=== PATIENT | male | born 1940 | race Caucasian/White ===

== ENCOUNTER 2019-04-20 12:22 | Outpatient (CLI) | payer MEDICARE, SELFPAY ==
--- NOTE | ~2019-04-20 | XR_ITS ---
EXAMINATION: XR lg joint inject/asp w image DATE: 04/20/2019 13:22 INDICATION: Right hip pain. TECHNIQUE: A time-out was performed to verify the patient's name, date of , and procedure to b e performed. The procedure including the risks, benefits, and alternatives was discussed with the pat ient. Risks discussed included bleeding and infection. The patient understood the risks and agreed to proceed. The skin overlying the right hip joint was prepped and draped in usual sterile fashion. A nesthetic was administered with 1% lidocaine subcutaneously. A 22 G needle was advanced under fluoro scopic guidance into the joint. Injection of 1 mL of Omnipaque 240 confirmed intra-articular positio n of the needle. Subsequently, injectate consisting of 2 mL 1% lidocaine and 1 mL 80 mg/mL Depo-Medr ol was instilled. The needle was removed and the entry site was cleaned and dressed. There were no immediate complications. Fluoroscopy exposure time was 0.0 minutes. The total number of images was 2. FINDINGS: Real-time fluoroscopy demonstrates the needle in the right hip joint. Patient's pain prior to procedure:1/10. Patient's pain following the procedure: 0/10. IMPRESSION: 1. Right hip joint injection of local anesthetic and steroid with decrease in the patient's presentin g pain. Reviewed, dictated and finalized at location A. NT RELATIONSHIP MANAGER IMPRESSION: 1. Right hip joint injection of local anesthetic and steroid with decrease in t he patient's presenting pain.
== END 2019-04-20 12:23 | disposition home or self-care (01) ==
PROVIDERS: PCP Family Medicine
DX: M16.11 Unilateral primary osteoarthritis, right hip (principal)
CPT/HCPCS: 20610; 77002; J1040; Q9966

== ENCOUNTER → 2019-10-20 13:16 | Outpatient (REF) | payer MEDICARE, SELFPAY | LOC: ANHLAB 13:16 | PROVIDERS: PCP Physician Assistant; Visit Provider Nurse Practitioner | DX: L72.0 Epidermal cyst (principal) | CPT/HCPCS: 88304 ==

== ENCOUNTER → 2020-01-04 13:58 | Outpatient (REF) | payer MEDICARE, SELFPAY | LOC: ANHLAB 13:58 | PROVIDERS: PCP Physician Assistant; Visit Provider Nurse Practitioner | DX: D23.4 Other benign neoplasm of skin of scalp and neck (principal); L57.8 Other skin changes due to chronic exposure to nonionizing radiation | CPT/HCPCS: 88305 ==

== ENCOUNTER 2020-11-24 10:26 | Outpatient (CLI) | payer MEDICARE, SELFPAY ==
--- NOTE | ~2020-11-24 | XR_ITS ---
. EXAMINATION: XR lg joint inject/asp w image DATE: 11/24/2020 11:07 INDICATION: Right hip pain. TECHNIQUE: A time-out was performed to verify the patient's name, date of , and procedure to b e performed. The procedure including the risks, benefits, and alternatives was discussed with the pat ient. Risks discussed included bleeding and infection. The patient understood the risks and agreed to proceed. The skin overlying the right hip joint was prepped and draped in usual sterile fashion. A nesthetic was administered with 1% lidocaine subcutaneously. A 22 G needle was advanced under fluoro scopic guidance into the joint. Injection of 1 mL of Omnipaque 240 confirmed intra-articular positio n of the needle. Subsequently, injectate consisting of 3 mL 1% lidocaine and 1 mL 80 mg/mL Depo-Medr ol was instilled. The needle was removed and the entry site was cleaned and dressed. There were no immediate complications. Fluoroscopy exposure time was 0.1 minutes. The total number of images was 2. FINDINGS: Real-time fluoroscopy demonstrates the needle in the right hip joint. Patient's pain prior to procedure:4/10. Patient's pain following the procedure: 0/10. IMPRESSION: 1. Fluoroscopy guided right hip joint injection of local anesthetic and steroid with decrease in the patient's presenting pain. Reviewed, dictated and finalized at location A.
== END 2020-11-24 10:27 | disposition home or self-care (01) ==
PROVIDERS: PCP Family Medicine; Visit Provider Orthopaedic Surgery Adult Reconstructive Orthopaedic Surgery
DX: M16.11 Unilateral primary osteoarthritis, right hip (principal)
CPT/HCPCS: 20610; 77002; J1040; Q9966

== ENCOUNTER → 2021-03-14 02:28 | Outpatient (CLI) | payer MEDICARE, SELFPAY ==
[2021-03-15 13:33] LABS: SARS-CoV-2 RNA PCR Positive
== END ==
PROVIDERS: PCP Family Medicine; Visit Provider Physician Assistant
DX: U07.1 COVID-19 (principal); R68.89 Other general symptoms and signs; R05.9 Cough, unspecified; R53.83 Other fatigue
CPT/HCPCS: C9803; U0003; U0005

== ENCOUNTER 2022-08-22 07:15 | Outpatient (RCR) | payer MEDICARE, SELFPAY | END 2022-08-22 09:49 | disposition home or self-care (01) | LOC: ANHCPREHAB 07:15 | PROVIDERS: PCP Family Medicine; Visit Provider Internal Medicine Cardiovascular Disease | DX: Z95.1 Presence of aortocoronary bypass graft (principal) | CPT/HCPCS: 93798 ==

== ENCOUNTER 2023-12-24 11:28 | Observation (INO) | payer MEDICARE, SELFPAY ==
[2023-12-24] VITALS (14 sets, daily range): BP systolic 124–189; BP diastolic 45–80; PULSE 46–66; RESP 8–18; TEMP 36.3–36.6; O2SAT 95–98; BMI 24.6
--- NOTE | ~2023-12-24 | CT_ITS ---
EXAMINATION: CTA chest PE protocol DATE: 12/24/2023 15:23 CDT INDICATION: Shortness of breath and chest pain TECHNIQUE: Computed tomographic angiography (CTA) of the chest was performed with 100 mL Omnipaque-35 0 intravenous contrast. The dose-length product was 362.21 mGy-cm. Maximum intensity projection 3D-re constructions of the aorta and other arteries were constructed by the technologist on a separate work station. COMPARISON: None. FINDINGS: No filling defects within the main or proximal pulmonary arteries. The main pulmonary artery is not enlarged. The thoracic aorta is unremarkable. The heart is of normal size, without pericardial effusion. Calcified granulomas within the right lung base. Calcified nodule within the basilar segment of the left upper lobe. Trace dependent atelectasis. The lungs are otherwise clear. No significant degenerative disease within the thoracic spine. Sternal wires and mediastinal clips are present. Moderate hiatal hernia is present. IMPRESSION: No pulmonary embolus. No aortic dissection. Moderate hiatal hernia. Reviewed, dictated and finalized at location A.
--- NOTE | ~2023-12-24 | XR_ITS ---
XR chest 2V 12/24/2023 13:42 Indication: Angina. History of aortic stenosis. Procedure: PA and lateral views of the chest Comparison: 05/14/2016 Findings: Status post median sternotomy for CABG. Heart size normal. No focal air space disease, pulm onary edema, pleural effusion or suspected pneumothorax. Impression: 1: No acute cardiopulmonary disease. Reviewed, dictated and finalized at location B. Impression: 1: No acute cardiopulmonary disease.
--- NOTE | 2023-12-24 11:29 | ECG_ITS ---
Test Date: 2023-12-24 11:37:31 Measurements Intervals [place] Rate: 66 P: -12 [place]: 142 QRS: -15 QRSD: 100 T: 56 QT: 381 QTc: 401 Interpretive Statements SINUS RHYTHM BORDERLINE VOLTAGE CRITERIA FOR LVH, CONSIDER NORMAL VARIANT [MEETS CRITERIA IN ONE OF: R(aVL), S(V1), R(V5), R(V5/V6)+S(V1)] BORDERLINE ECG No previous ECG available for comparison Electronically Signed On 12-25-2023 07:03:43 CDT by Nigel Pyle M.D.
--- NOTE | 2023-12-24 11:50 | ED.CHESTPAIN ---
HPI - Chest Pain General Chief Complaint: Chest Pain <LAILA Roberts Filed: 12/24/23 12:01> Stated Complaint: angina <LAILA Roberts Filed: 12/24/23 12:01> Time Seen by Provider: 12/24/23 11:50 <LAILA Roberts Last Filed: 12/24/23 12:01> Focused HPI: Patient is an 83 y/o male, with PMH of CAD with 2 stents s/p 4-vessel CABG, aortic stenosis needing TAVR, who presents to the ED with c/o CP. Patient reports he developed pain in his L sided jaw around 830-9am this morning while driving. States the pain radiated into his chest. Described as a pressure. States pain lasted 35-45 minutes and resolved on its own. Denies current pain. Reported mild SOB with the pain. States sx's felt similar to what he experienced with his [address] Delcid. Also reports having elevated BP readings and intermittent headaches and blurry vision over the past 1 month. Denies fevers, recent cough or cold sx's. ECHO 05/2023 shows LVEF with normal function, 60-65%, grade 1 diastolic dysfunction, Mild to moderate aortic stenosis. GENERAL: Elderly, well-nourished, and in no acute distress. HEAD: Normocephalic, atraumatic. CHEST: Clear to auscultation. ?No respiratory distress. No focal lung sounds. HEART: Regular rate and rhythm.?+murmur. NEURO: ?Alert and oriented x3. Patient screened in triage and initial orders placed.? ?Additional care and disposition to be based upon?diagnostic testing and treatment. <LAILA Roberts Filed: 12/24/23 12:01> Source: patient <LAILA Roberts Filed: 12/24/23 12:01> Mode of arrival: ambulatory <LAILA Roberts Filed: 12/24/23 12:01> Limitations: no limitations <LAILA Roberts Filed: 12/24/23 12:01> History of Present Illness HPI narrative: 83-year-old male presenting with an episode of chest pain. States that he was lifting some heavy bags and then got in his car to drive home. States that he then developed pain in the left side of his jaw that went into his chest. Describes it as pressure-like and states that it feels like prior episodes of angina that he used to have prior to his CABG. Reports mild associated shortness of breath. No lightheadedness or palpitations. States that his symptoms resolved spontaneously after about 30-45 minutes. States that he has been having elevated blood pressure lately. No further complaints. <Landy Malone MD - Last Filed: 12/24/23 22:14> Related Data Home Medications: Home Medications Medication Instructions Recorded Confirmed clopidogrel 75 mg tablet (Plavix) 75 mg PO DAILY 05/22/19 12/24/23 [id number] 300 mcg-K 60 1 tablet PO DAILY 05/22/19 12/24/23 mcg-lycop 600 mcg-lutein 300 mcg tablet (Centrum Silver Men) atorvastatin 40 mg tablet 40 mg PO HS 06/05/22 12/24/23 vit C 250 mg-vit E 90 mg-zinc 40 1 tablet PO BID 12/24/23 12/24/23 mg-copper 1 [id number]-[id number] capsule (PreserVision AREDS-2) <Mague White PA-C - Last Filed: 12/24/23 12:01> Allergies/Adverse Reactions: Allergies Allergy/AdvReac Type Severity Reaction Status Date / Time Beta-Blockers AdvReac Hypotension Verified 12/24/23 21:12 (Beta-Adrenergic Bloc <Mague White PA-C - Last Filed: 12/24/23 12:01> Review of Systems Review of Systems: All systems reviewed & are unremarkable except as noted in HPI and below <Landy Malone MD - Last Filed: 12/24/23 22:14> PMFSH Past Medical History Medical History: Medical History (Updated 12/24/23 @ 22:14 by Landy Malone MD) Anemia of chronic disease Aortic stenosis Coronary artery disease PCI/stent to LAD in 02/2010 PCI/stent to ostial left circumflex in 04/2016 Four vessel CABG on 04/18/2022 Degenerative joint disease Dyslipidemia Gout Hypertension Hypothyroidism Stage 3a chronic kidney disease <Rache
[2023-12-24 11:58] LABS: Basophils Percent Auto 0.4 % (0.2-1.2); Eosinophils Absolute Auto 0.5 K/mm3 (0-0.3); Eosinophils Percent Auto 7.4 % (0-4.4); Hematocrit 39.1 % (42.0-52.0); Hemoglobin 13.5 g/dL (14.0-18.0); Immature Granulocyte Absolute 0.01 K/mm3 (0.00-0.031); Immature Granulocyte Percent A 0.1 % (0-0.5); Lymphocytes Absolute Auto 1.28 K/mm3 (0.9-3.2); Lymphocytes Percent Auto 17.9 % (18.3-44.2); Mean Corpuscular HGB Conc 34.5 g/dl (32-36); Mean Corpuscular Volume 89.7 fl (80-100); Mean Platelet Volume 10.9 fl (7.4-10.4); Monocytes Absolute Auto 0.7 K/mm3 (0.1-0.6); Monocytes Percent Auto 9.5 % (2.6-8.5); Neutrophils Absolute Auto 4.6 K/mm3 (1.3-6.7); Neutrophils Percent Auto 64.7 % (45.5-73.1); Platelet Count Result 156 k/mm3 (150-375); Red Blood Count 4.36 M/mm3 (4.6-6.20); Red Cell Distribution Width 13.3 % (11.5-14.5); White Blood Count 7.1 K/mm3 (4.5-10.0)
[2023-12-24 12:09] LABS: Prothrombin Time 13.8 Seconds (11.1-14.7)
[2023-12-24 12:10] LABS: Partial Thromboplastin Time 29.1 Seconds (22.3-36.8)
[2023-12-24 12:17] LABS: Alanine Aminotransferase 28 U/L (6-50); Albumin Level 4.8 g/dL (3.5-5.1); Alkaline Phosphatase 76 U/L (38-126); Anion Gap 12 mmol/L (4-12); Aspartate Amino Transferase 38 U/L (17-59); Bilirubin,Total 1.3 mg/dL (0.2-1.3); Blood Urea Nitrogen 23 mg/dL (9-20); Calcium 9.5 mg/dL (8.4-10.2); Carbon Dioxide 20 mmol/L (22-30); Chloride 107 mmol/L (98-107); Estimated CRCL calculation 46 ml/min; Estimated Glomerular Filt Rate > 60; Glucose 97 mg/dL (65-110); Lipase 238 U/L (23-300); Potassium 4.3 mmol/L (3.4-5.0); Sodium 139 mmol/L (137-145)
[2023-12-24 12:29] LABS: Troponin I < 0.012 ng/mL (0.000-0.034)
[2023-12-24 12:37] LABS: Magnesium 1.9 mg/dL (1.6-2.3)
[2023-12-24] MEDS: ASPIRIN 81 MG CHEWABLE TABLET 324 MG PO (13:23)
[2023-12-24 13:35] LABS: D Dimer 0.84 ug/mL (<0.48)
--- NOTE | 2023-12-24 14:12 | ECG_ITS ---
Test Date: 2023-12-24 14:18:17 Measurements Intervals [place] Rate: 55 P: 11 [place]: 158 QRS: -3 QRSD: 100 T: 57 QT: 439 QTc: 422 Interpretive Statements SINUS BRADYCARDIA OTHERWISE NORMAL ECG Compared to ECG 12/24/2023 11:37:31 NO SIGNIFICANT CHANGE Electronically Signed On 12-25-2023 07:08:15 CDT by Nigel Pyle M.D.
[2023-12-24 15:29] LABS: Troponin I < 0.012 ng/mL (0.000-0.034)
--- NOTE | 2023-12-24 17:15 | ECG_ITS ---
Test Date: 2023-12-24 17:24:07 Measurements Intervals [place] Rate: 54 P: 6 [place]: 160 QRS: -12 QRSD: 102 T: 50 QT: 424 QTc: 404 Interpretive Statements SINUS BRADYCARDIA OTHERWISE WITHIN NORMAL LIMITS Compared to ECG 12/24/2023 14:18:17 No significant changes Electronically Signed On 12-25-2023 07:16:33 CDT by Nigel Pyle M.D.
[2023-12-24 18:04] LABS: Troponin I < 0.012 ng/mL (0.000-0.034)
--- NOTE | 2023-12-24 18:20 | PM.IMHP ---
H&P: HPI History of Present Illness Date/Time: 12/24/23 18:20 Chief Complaint: Chest pain. Narrative: This is a very pleasant 83-year-old male with coronary artery disease with history of stent x2 and 4 vessel bypass on 04/18/2022, aortic stenosis, diastolic dysfunction, hypertension, dyslipidemia, chronic kidney disease, hypothyroidism, gout, anemia, and history of prostate cancer presented to the emergency department via private vehicle for evaluation of chest pain. At around 08:30 he was driving his car when he developed pressure in the left chest radiating up into the jaw. It lasted between 35 and 45 minutes before resolving without intervention. Associated symptoms include mild shortness of breath. Symptoms are similar to episodes of angina he had prior to his cardiac stents and ultimate bypass. With further questioning he admits that he has been at his cabin recently and a couple weeks ago he lifted a 70 lb carpet and I believe this morning a 25 lb bag of bird seed. However he does not believe that his symptoms are due to muscle strain. He also denies syncope, near syncope, dizziness, sweats, pleuritic pain, lower extremity edema, calf pain, nausea, and vomiting. In the ED: Blood pressures have been running pretty consistently in the upper 140s of low 160s systolic since arrival. The remainder of his vital signs are stable. Labs were significant for a WBC count of 7.1, hemoglobin 13.5, D-dimer 0.80, BUN 23, creatinine 1.10, troponin less than 0.012. EKG showed a sinus bradycardia without significant ST segment depression or elevation. Chest CTA was negative for pulmonary embolus and aortic dissection. Moderate hiatal hernia noted. He was given aspirin 324 mg and is being admitted in this setting for close monitoring and Cardiology consultation. Review of Systems Review of Systems: 12 systems were reviewed and are negative except for as per HPI. [facility] Past Medical History Medical History Anemia of chronic disease Aortic stenosis Coronary artery disease PCI/stent to LAD in 02/2010 PCI/stent to ostial left circumflex in 04/2016 Four vessel CABG on 04/18/2022 Degenerative joint disease Dyslipidemia Gout Hypertension Hypothyroidism Stage 3a chronic kidney disease Surgical History Surgical History History of arthroscopy of both shoulders History of bilateral cataract extraction History of bilateral hip replacements History of coronary artery stent placement History of four vessel coronary artery bypass graft (04/18/22) History of inguinal hernia repair History of radical prostatectomy (2009) Family History Family History Mother Diabetes mellitus Father Family history of cardiovascular disease Heart attack at age 41 from [place] Sibling Family history of Parkinson's disease Family history of malignant neoplasm of brain Family history of cardiovascular disease Social History Social History (Updated 12/24/23 @ 22:13 by Nery Guadarrama PA-C) Social History: Surrogate medical decision maker: Viridiana Ricardo, daughter. Code status: Full code. Smoking packs per day: 1 Smoking cigarettes per day: 20.0 Years smoked: 17 Smoking pack-years: 17.00 Smoking status: Former smoker Tobacco type: cigarettes Second hand tobacco smoke exposure: No Smoking end date: 03/18/80 Alcohol intake: never Drinks per week: 5 Substance use: never Substance use type: does not use Do You Feel Safe in your Home?: Yes Lack of Transportation: No Lack of Food: Never True Current Housing: I Have Housing Concerned About Future Housing: No Difficulty Paying Gas/Electric Bills: No Difficulty Paying for Meds: No Currently Unemployed: No Education: Bachelor's Degree Difficulty w/ Childcare or Family Care: No Living arrangem
--- NOTE | 2023-12-24 20:54 | ADMGEN ---
This patient, Jose Martinez, was admitted to IMU Room 211-01. Patient/family oriented to hospital policies and general routines including ID bracelet, bed and alarms, visiting hours, pain management, procedures, bathroom and other care routines, personal items, smoking policy, room service/diet, and visiting hours. Information on how to activate the Rapid Response Team has been discussed. Patient/Family are encouraged to report perceived risks to care and to ask questions if they do not understand what they are told or what they should do.
[2023-12-24] MEDS: ATORVASTATIN 40 MG TABLET PO (23:47)
[2023-12-25] VITALS (11 sets, daily range): BP systolic 134–156; BP diastolic 53–57; PULSE 48–65; RESP 16–18; TEMP 36.5–36.8; O2SAT 95–98
--- NOTE | 2023-12-25 | ECHO_ITS ---
Patient Info Name: Jose Martinez Age: 83 years : 1940 Gender: Male Ht: 69 in Wt: 170 lbs BSA: 1.95 m2 HR: 58 bpm BP: 134 / 57 mmHg Heart Rhythm: Sinus Rhythm Technical Quality: Fair Exam Date: 12/25/2023 10:33 AM Exam Location: Echo Lab Patient Status: Outpatient Admit Date: 12/24/2023 Staff Ordering Physician: Zain Akins MD (guicho/lia) Balance Sheet Analyst: Maggy Velasquez RDCS Attending Provider: Linda Jaquez APRN Referring Physician: Tashi PINON; Exam Type: CA echo doppler color flow Study Info Indications I25.110 - Atherosclerotic heart disease of circle coronary artery with unstable angina pectoris Complete two-dimensional, color flow and Doppler transthoracic echocardiogram is performed. Summary 1. Complete two-dimensional, color flow and Doppler transthoracic echocardiogram is performed. 2. Normal left ventricular size and systolic function without wall motion abnormality. 3. Grade 1 diastolic noncompliance. 4. Mild left atrial enlargement. 5. Sclerotic aortic valve with mild stenosis and mild regurgitation. 6. Mild posterior leaflet MVP with no mitral regurgitation. Left Ventricle Left ventricular chamber dimension is normal. Left ventricular systolic function is normal, estimated at 55-60%. The left ventricular diastolic function is grade I diastolic dysfunction. Right Ventricle Right ventricular chamber dimension is normal. Left Atria Left atrial chamber dimension is mildly enlarged. Right Atria Right atrial chamber dimension is normal. Aortic Valve The aortic valve is trileaflet. There is moderate aortic valve sclerosis. There is mild aortic valve stenosis with a peak velocity of 234 cm/s, mean gradient of 11 mmHg, and aortic valve area of 1.0 cm2. There is mild aortic valve regurgitation. Pulmonic Valve The pulmonic valve is normal. There is mild pulmonic regurgitation. Mitral Valve The mitral valve has posterior prolapse. There is no mitral valve regurgitation. The mitral valve annulus is mildly calcified. Tricuspid Valve The tricuspid valve leaflets are normal. Pericardium/Pleural The pericardium appears normal. Aorta The aortic root size at the sinus of Valsalva is normal. Left Ventricular Outflow Tract Name Value Normal LVOT 2D LVOT Diameter 2.0 cm LVOT Doppler LVOT Peak Gradient 3 mmHg LVOT Mean Gradient 1 mmHg LVOT VTI 23 cm LVOT VTI/AV VTI Ratio 0.3 LVOT Stroke Volume 69 ml LVOT CO 3.2 l/min LVOT CI 1.6 l/min/m2 Pulmonic Valve Name Value Normal PV Doppler PV Peak Gradient 3 mmHg PV Regurgitation Doppler [place] Peak End Diastolic Velocity 96 cm/
[2023-12-25 05:25] LABS: Basophils Percent Auto 0.6 % (0.2-1.2); Eosinophils Absolute Auto 0.6 K/mm3 (0-0.3); Eosinophils Percent Auto 11.9 % (0-4.4); Hematocrit 37.9 % (42.0-52.0); Immature Granulocyte Absolute 0.01 K/mm3 (0.00-0.031); Immature Granulocyte Percent A 0.2 % (0-0.5); Immature Platelet Fraction Pct 4.4 % (0.9-11.2); Lymphocytes Absolute Auto 1.27 K/mm3 (0.9-3.2); Mean Corpuscular HGB Conc 34.3 g/dl (32-36); Mean Corpuscular Volume 90.5 fl (80-100); Mean Platelet Volume 10.7 fl (7.4-10.4); Monocytes Absolute Auto 0.6 K/mm3 (0.1-0.6); Monocytes Percent Auto 12.1 % (2.6-8.5); Neutrophils Absolute Auto 2.7 K/mm3 (1.3-6.7); Neutrophils Percent Auto 51.2 % (45.5-73.1); Platelet Count Result 131 k/mm3 (150-375); Red Blood Count 4.19 M/mm3 (4.6-6.20); Red Cell Distribution Width 13.3 % (11.5-14.5); White Blood Count 5.3 K/mm3 (4.5-10.0)
[2023-12-25 05:35] LABS: Anion Gap 6 mmol/L (4-12); Blood Urea Nitrogen 22 mg/dL (9-20); Calcium 9.3 mg/dL (8.4-10.2); Carbon Dioxide 25 mmol/L (22-30); Chloride 107 mmol/L (98-107); Estimated CRCL calculation 42 ml/min; Estimated Glomerular Filt Rate 58; Glucose 90 mg/dL (65-110); Potassium 4.6 mmol/L (3.4-5.0); Sodium 138 mmol/L (137-145)
[2023-12-25] MEDS: LEVOTHYROXINE SODIUM 100 MCG TABLET PO (06:38)
[2023-12-25] MEDS: CLOPIDOGREL BISULFATE 75 MG TABLET PO (08:28)
[2023-12-25] MEDS: MULTIVITAMINS /C LUTEIN (CENTRUM SILVER) TABLET *BKC 1 TAB PO (08:29)
[2023-12-25] MEDS: ENOXAPARIN 40 MG/0.4 ML SYRINGE SUB-Q (08:31)
[2023-12-25] MEDS: OPTI-GEN TAB 1 TABLET PO ×2 (08:32→16:37)
--- NOTE | 2023-12-25 14:23 | PM.CNCAR ---
Assessment and Plan Assessment and plan (1) Chest pain: Code(s): R07.9 - Chest pain, unspecified Status: Acute (2) Aortic stenosis: Code(s): I35.0 - Nonrheumatic aortic (valve) stenosis Status: Acute (3) Coronary artery disease: Code(s): I25.10 - Atherosclerotic heart disease of [place] coronary artery without angina pectoris Status: Acute Plan 1. CAD s/p CABG (2022) Typical chest pain; single episode 2. Aortic stenosis 3. HTN 4. Hyperlipidemia - No need for further evaluation. Will perform a non invasive evaluation if recurrence of chest pain. Discussed with him, he agreed with the plan - Will start him on low dose BB; metoprolol 25 mg BID. Nitro PRN. Can add Imdur 30 if needed - Echo to assess Aortic valve disease - Continue plavix, ASA discontinued by his ingot header - Continue statin History of Present Illness History of Present Illness Consult date/time: 12/25/23 14:23 Consult reason: chest pain Reason For Visit: Chest pain Narrative: This is a very pleasant 83-year-old male with coronary artery disease s/p PCI follwed by CABG in 2022, aortic stenosis 9no echo for review), diastolic dysfunction, hypertension, dyslipidemia, chronic kidney disease, hypothyroidism, gout, anemia, and history of prostate cancer presented to the emergency department with one episode of chest pain. This pain was retrosternla and radiated to the elft neck. pain sbisde by itslef in 30 minutes. No nitro taken. Not on BB - Currently no more episodes of chest pain after admission ECG shows NSR, no dynamic ST-T wave changes Negative biomarkers is active with no episodes of chest pain in the past He does have moderate hiatal hernia Review of Systems Review of Systems: 12 systems were reviewed and are negative except for as per HPI. All systems reviewed & are unremarkable except as noted in HPI and below PMFSH Past Medical History Medical History Anemia of chronic disease Aortic stenosis Coronary artery disease PCI/stent to LAD in 02/2010 PCI/stent to ostial left circumflex in 04/2016 Four vessel CABG on 04/18/2022 Degenerative joint disease Dyslipidemia Gout Hypertension Hypothyroidism Stage 3a chronic kidney disease Surgical History Surgical History History of arthroscopy of both shoulders History of bilateral cataract extraction History of bilateral hip replacements History of coronary artery stent placement History of four vessel coronary artery bypass graft (04/18/22) History of inguinal hernia repair History of radical prostatectomy (2009) Family History Family History Mother Diabetes mellitus Father Family history of cardiovascular disease Heart attack at age 41 from [place] Sibling Family history of Parkinson's disease Family history of malignant neoplasm of brain Family history of cardiovascular disease Social History Social History (Updated 12/24/23 @ 22:13 by Nery Guadarrama PA-C) Social History: Surrogate medical decision maker: Viridiana Ricardo, daughter. Code status: Full code. Smoking packs per day: 1 Smoking cigarettes per day: 20.0 Years smoked: 17 Smoking pack-years: 17.00 Smoking status: Former smoker Tobacco type: cigarettes Second hand tobacco smoke exposure: No Smoking end date: 03/18/80 Alcohol intake: never Drinks per week: 5 Substance use: never Substance use type: does not use Do You Feel Safe in your Home?: Yes Lack of Transportation: No Lack of Food: Never True Current Housing: I Have Housing Concerned About Future Housing: No Difficulty Paying Gas/Electric Bills: No Difficulty Paying for Meds: No Currently Unemployed: No Education: Bachelor's Degree Difficulty w/ Childcare or Family Care: No Living arrangements
--- NOTE | 2023-12-25 15:27 | PM.DS ---
DS: Admitting Diagnosis Discharge Date 12/25/2023 Admitting Diagnosis Angina/CAD DS: Discharge Diagnosis Discharge Diagnosis (1) Chest pressure: Code(s): R07.89 - Other chest pain Status: Acute (2) Coronary artery disease: Code(s): I25.10 - Atherosclerotic heart disease of [place] coronary artery without angina pectoris Status: Acute (3) Aortic stenosis: Code(s): I35.0 - Nonrheumatic aortic (valve) stenosis Status: Acute (4) Hypertension: Code(s): I10 - Essential (primary) hypertension Status: Acute (5) Dyslipidemia: Code(s): E78.5 - Hyperlipidemia, unspecified Status: Acute (6) Anemia of chronic disease: Code(s): D63.8 - Anemia in other chronic diseases classified elsewhere Status: Acute (7) Hypothyroidism: Code(s): E03.9 - Hypothyroidism, unspecified Status: Acute (8) Hiatal hernia: Code(s): K44.9 - Diaphragmatic hernia without obstruction or gangrene Status: Acute DS: Summary Hospital Course Reason for hospitalization: Angina/CAD Hospital Course: Patient was an 83-year-old male who presented to the emergency department with chest pain patient states the symptoms occurred about 30-45 minutes prior to his arrival to the emergency room he describes them as pressure that radiated into his Jaw. Patient with history of CAD stents x2 and 4 vessel no as well as aortic stenosis and diastolic dysfunction. Initial findings in the emergency room showed troponin negative and EKG showing sinus bradycardia without any significant ST/T changes. Patient was admitted overnight for observation with consult to Cardiology continue to do serial troponins which remained negative as well as EKGs which showed no changes. Patient did report chest pain resolved morning and he was seen by Cardiology who determined he did not need any invasive intervention we initiated him low-dose metoprolol as well as providing nitro p.r.n.. patient was discharged home with follow-up to Cardiology if angina returns cardiology recommended starting Imdur 30 mg. Status at Discharge Functional status at discharge: independent ambulation Time Spent with Patient Time attestation: Total time spent providing and/or coordinating discharge services: Time spent: Greater than 30 minutes Exam Narrative: Physical Exam: GENERAL: Alert and oriented x 3. No acute distress. EYES: EOMI. No scleral icterus. PERRLA. HEENT: Moist mucous membranes. LUNGS: Clear to auscultation bilaterally. No accessory muscle use. CARDIOVASCULAR: Regular rate and rhythm. No murmur. No JVD. S1-S2 ABDOMEN: Soft, non tenderness and non-distended. No palpable masses. EXTREMITIES: No edema. Non-tender SKIN: No rashes or lesions. Skin warm, dry. NEUROLOGIC: No focal neurological deficits. CN II-XII grossly intact PSYCHIATRIC: Appropriate mood and affect. Good judgement and insight. No visual or auditory hallucinations. No suicidal or homicidal ideation. DS: Data Data Completed and Pending Labs on day of discharge: Labs from last 24 hours 12/25/23 12/24/23 12/24/23 04:58 17:24 14:16 WBC 5.3 RBC 4.19 L Hgb 13.0 L Hct 37.9 L MCV 90.5 MCH 31.0 MCHC 34.3 RDW 13.3 Plt Count 131 L MPV 10.7 H Immature Gran % (Auto) 0.2 Neut % (Auto) 51.2 Lymph % (Auto) 24.0 [place] % (Auto) 12.1 H Eos % (Auto) 11.9 H Baso % (Auto) 0.6 Lymph # (Auto) 1.27 [place] # (Auto) 0.6 Eos # (Auto) 0.6 H Baso # (Auto) 0.0 Abs Immat Gran (auto) 0.01 Absolute Neuts (auto) 2.7 Absolute Nucleated RBC 0.000 Nucleated RBC % 0.0 % Immature Plt Fraction 4.4 Sodium 138 Potassium 4.6 Chloride 107 Carbon Dioxide 25 Anion Gap 6 BUN 22 H Creatinine 1.20 Estim Creat Clear Calc 42 Estimated GFR 58 L Glucose 90 Calcium 9.3 Magnesium 2.0 Troponin I < 0.012 < 0.012 TSH (Reflex) 1.120
== END 2023-12-25 16:45 | disposition home or self-care (01) ==
LOC: ANHED 16:41 → ANHIMU 21:12
PROVIDERS: Emergency Medicine; Physician Assistant; Admitting Provider General Practice; Emergency Provider Emergency Medicine; PCP Family Medicine; Visit Provider Nurse Practitioner Family
DX: R07.89 Other chest pain (principal); R06.02 Shortness of breath; I25.10 Atherosclerotic heart disease of native coronary artery without angina pectoris; I35.0 Nonrheumatic aortic (valve) stenosis; I51.89 Other ill-defined heart diseases; I12.9 Hypertensive chronic kidney disease with stage 1 through stage 4 chronic kidney disease, or unspecified chronic kidney disease; N18.31 Chronic kidney disease, stage 3a; D63.1 Anemia in chronic kidney disease; K44.9 Diaphragmatic hernia without obstruction or gangrene; E03.9 Hypothyroidism, unspecified; M10.9 Gout, unspecified; E78.5 Hyperlipidemia, unspecified; Z79.02 Long term (current) use of antithrombotics/antiplatelets; Z96.643 Presence of artificial hip joint, bilateral; Z87.891 Personal history of nicotine dependence; Z95.1 Presence of aortocoronary bypass graft; Z95.5 Presence of coronary angioplasty implant and graft; Z85.46 Personal history of malignant neoplasm of prostate
CPT/HCPCS: 36415; 71046; 71275; 80048; 80053; 83690; 83735; 84443; 84484; 85025; 85055; 85380; 85610; 85730; 93005; 93306; 96372; 99285; A9270; G0378; J1650; Q9967

== ENCOUNTER 2024-12-03 14:05 | Outpatient (CLI) | payer MEDICARE, SELFPAY ==
--- NOTE | ~2024-12-03 | XR_ITS ---
XR lumbar spine 2-3V Indication: M25.369 - Other instability, unspecified knee Comparison: None Findings: Grade 1 retrolisthesis of L1 on L2, L2 on L3 with grade 1 anterolisthesis of L3 on L4. Moderate to severe loss of disc height throughout. Soft tissues unremarkable Impression: No acute abnormality. Reviewed, dictated and finalized at location A. Impression: No acute abnormality.
--- NOTE | ~2024-12-03 | XR_ITS ---
EXAMINATION: XR knee LT 3V, 12/03/2024 14:09 CDT HISTORY: M25.369 - Other instability, unspecified knee COMPARISON: No comparisons available. Findings: No acute fracture or malalignment. 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 Impression: No acute fracture or malalignment. Reviewed, dictated and finalized at location A. Impression: No acute fracture or malalignment.
== END 2024-12-03 14:06 | disposition home or self-care (01) ==
LOC: MICIMG 14:07
PROVIDERS: PCP Family Medicine; Visit Provider Physician Assistant Medical
DX: M25.362 Other instability, left knee (principal)
CPT/HCPCS: 72100; 73562